=== PATIENT | female | born 1960 | race Caucasian/White ===

== ENCOUNTER 2018-03-02 09:47 | Emergency (ER) | payer OTHER, MEDICARE ==
[2018-03-02] MEDS ORDERED: ACETAMINOPHEN 325 MG TABLET PO ONE (09:59)
--- NOTE | 2018-03-02 10:01 | ER Document Report ---
ED Medical Screen (RME) - General Chief Complaint: Abscess Stated Complaint: LEFT ARM PAIN Time Seen by Provider: 03/02/18 09:54 Notes: RAPID MEDICAL EVALUATION DISCLOSURE I have seen this patient as part of a Rapid Medical Evaluation and, if applicable, placed any initially appropriate orders. The patient will be seen and fully evaluated, including a full history and physical exam, by a provider ( in Main ED or Fast Track) when a room becomes available. 57-year-old female [facility] MRSA here with complaints left arm abscess that started 1 -2 weeks ago (she cannot remember) and has progressively worsened. She did have a second abscess however it was lanced but she was not placed on antibiotics. The one she is here for today has progressively increased in size pain and redness. There is no drainage fevers chills. [facility] her [facility]. She is taking Tylenol for the pain. EXAM TTP erythema and fluctuance in the left axilla TRAVEL OUTSIDE OF THE [place] IN LAST 30 DAYS: No - Related Data Allergies/Adverse Reactions: clarithromycin [From Biaxin] Allergy (Verified 03/02/18 09:49) codeine [Codeine] Allergy (Verified 03/02/18 09:49) erythromycin base [Erythromycin Base] Allergy (Verified 03/02/18 09:49) Sulfa (Sulfonamide Antibiotics) Allergy (Verified 03/02/18 09:49) sumatriptan [From Imitrex] Allergy (Verified 03/02/18 09:49) sumatriptan succinate [From Imitrex] Allergy (Verified 03/02/18 09:49) aspergillus Allergy (Uncoded 03/02/18 09:49) bee stings Allergy (Uncoded 03/02/18 09:49) goldenrod Allergy (Uncoded 03/02/18 09:49) grass smut Allergy (Uncoded 03/02/18 09:49) mite farinae Allergy (Uncoded 03/02/18 09:49) pigweed Allergy (Uncoded 03/02/18 09:49) Past Medical History - Past Medical History Cardiac Medical History: Reports: Hx Hypercholesterolemia, Hx Hypertension Pulmonary Medical History: Reports: Hx Asthma, Hx Bronchitis GI Medical History: Reports: Hx Gastroesophageal Reflux Disease. Denies: Hx Ulcer - IBS - Immunizations Hx Diphtheria, Pertussis, Tetanus Vaccination: Yes Physical Exam - Vital signs Vitals: Temp Pulse Resp BP Pulse Ox 98.0 F 94 18 145/65 H 94 03/02/18 09:51 03/02/18 09:51 03/02/18 09:51 03/02/18 09:51 03/02/18 09:51 Course - Vital Signs Vital signs: Temp Pulse Resp BP Pulse Ox 98.0 F 94 18 145/65 H 94 03/02/18 09:51 03/02/18 09:51 03/02/18 09:51 03/02/18 09:51 03/02/18 09:51 Doctor's Discharge - Discharge Referrals: LOCALMD,NO [Primary Care Provider] - Follow up as needed
--- NOTE | 2018-03-02 11:06 | ER Document Report ---
HPI - HPI Patient complains to provider of: Abscess Onset: Last week Onset/Duration: Worse Quality of pain: Achy Pain Level: 2 Context: Patient presents complaining of abscess to the left axilla for the past week. Patient reports a history of MRSA in the past and is concerned about this today. Patient denies any fever. Patient states that she has been attempting to squeeze the skin lesion which is caused some bruising to the axilla. Associated Symptoms: denies: Fever Exacerbated by: Denies Relieved by: Denies Similar symptoms previously: Yes Recently seen / treated by doctor: No - ROS ROS below otherwise negative: Yes Systems Reviewed and Negative: Yes All other systems reviewed and negative - CONSTITUTIONAL Constitutional: DENIES: Fever, Chills - GASTROINTESTINAL Gastrointestinal: DENIES: Nausea - REPRODUCTIVE Reproductive: DENIES: : - MUSCULOSKELETAL Musculoskeletal: REPORTS: Extremity pain - DERM Skin Color: Erythema, Ecchymosis Notes: Abscess to left axilla Past Medical History - General Information source: Patient - Social History Smoking Status: Never Smoker Chew tobacco use (# tins/day): No Frequency of alcohol use: None Drug Abuse: None Occupation: None Lives with: Family Family History: Reviewed & Not Pertinent Patient has suicidal ideation: No Patient has homicidal ideation: No - Past Medical History Cardiac Medical History: Reports: Hx Hypercholesterolemia, Hx Hypertension Pulmonary Medical History: Reports: Hx Asthma, Hx Bronchitis Renal/ Medical History: Denies: Hx Peritoneal Dialysis GI Medical History: Reports: Hx Gastroesophageal Reflux Disease. Denies: Hx Ulcer - IBS Infectious Medical History: Reports: Hx MRSA Past Surgical History: Reports: Hx Abdominal Surgery, Hx Orthopedic Surgery - Right leg, Right clavicle, hand - Immunizations Hx Diphtheria, Pertussis, Tetanus Vaccination: Yes Vertical Provider Document - CONSTITUTIONAL Agree With Documented VS: Yes Exam Limitations: No Limitations General Appearance: WD/WN, No Apparent Distress - INFECTION CONTROL TRAVEL OUTSIDE OF THE [place] IN LAST 30 DAYS: No - HEENT HEENT: Atraumatic, Normocephalic - NECK Neck: Normal Inspection - RESPIRATORY Respiratory: Breath Sounds Normal, No Respiratory Distress - CARDIOVASCULAR Cardiovascular: Regular Rate, Regular Rhythm - BACK Back: Normal Inspection - MUSCULOSKELETAL/EXTREMETIES Musculoskeletal/Extremeties: MAEW - NEURO Level of Consciousness: Awake, Alert, Appropriate Motor/Sensory: No Motor Deficit - DERM Integumentary: Warm, Dry Notes: Erythema to left axilla surrounding tender nodular lesion. Patient with scattered erythematous lesions with central pustular lesion concerning for folliculitis to left axilla. Course - Re-evaluation Re-evalutation: 03/02/18 12:26 Patient with findings consistent with cellulitis and likely inflamed lymph node to left axilla. Patient encouraged not to pick at her squeeze at the skin. Will cover for MRSA given patient's history. Patient given good return precautions. Patient afebrile and nontoxic in appearance. - Vital Signs Vital signs: Temp Pulse Resp BP Pulse Ox 98.0 F 94 18 145/65 H 94 03/02/18 09:51 03/02/18 09:51 03/02/18 09:51 03/02/18 09:51 03/02/18 09:51 Procedures - Incision and Drainage Left Arm Type: Simple Anesthetic type: 1% Lidocaine Blade size: 11 I&D procedure: Other - surgical scrub Incision Method: Incision made by scalpel Amount/type of drainage: Small amount of bloody drainage, no purulent drainage noted Discharge - Discharge Clinical Impression: Cellulitis Qualifiers: Site of cellulitis: extremity Site of cellulitis of extremity: axilla Laterality: left Qualified Code(s): L03.112 - Cellulitis of left axilla Condition: Stable Disposition: HOME, SELF-CARE Instructions: Cephalexin ([facility]), Clindamycin ([facility]), Post Incision and Drainage Additional Instructions: Return immediately for any new or worsening symptoms Followup with your primary care provider, call tomorrow to make a followup appointment Prescriptions: Cephalexin Monohydrate [Keflex 500 mg Capsule] 500 mg PO Q6H 7 Days capsule Clindamycin HCl [Cleocin Hcl] 300 mg PO QID #28 capsule Naproxen [Naprosyn 250 Nmg Tablet] 1 tab PO BID #14 tablet Referrals: LANDON,NO [NO LOCAL MD] - Follow up as needed [facility] [Provider Group] - Follow up as needed
[2018-03-02] MEDS ORDERED: CLINDAMYCIN HCL 150 MG CAPSULE PO ONE (12:25)
[2018-03-02] MEDS ORDERED: CEPHALEXIN 500 MG CAPSULE PO ONE (12:25)
[2018-03-02 12:51] VITALS: BP 109/53
== END 2018-03-02 12:48 | disposition home or self-care (01) ==
LOC: ER 09:47
PROC: 0H9CXZZ Drainage of Left Upper Arm Skin, External Approach (ICD-10-PCS; principal; 2018-03-02)
DX: L03.112 Cellulitis of left axilla (principal); E78.00 Pure hypercholesterolemia, unspecified; I10 Essential (primary) hypertension; Z86.14 Personal history of Methicillin resistant Staphylococcus aureus infection
CPT/HCPCS: 99283